=== PATIENT | male | born 1995 | race American Indian/Alaskan Native ===

== ENCOUNTER 2019-06-06 17:32 | Emergency (ER) | payer OTHER ==
[2019-06-06 19:27] VITALS: BP 124/74
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
[2019-06-06] MEDS ORDERED: IBUPROFEN 600 MG TAB PO ONE (21:43)
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
== END 2019-06-06 22:16 | disposition home or self-care (01) ==
LOC: ED 17:32
DX: M54.89 Other dorsalgia (principal); F17.200 Nicotine dependence, unspecified, uncomplicated; V89.2XXA Person injured in unspecified motor-vehicle accident, traffic, initial encounter; Y93.89 Activity, other specified; Y92.410 Unspecified street and highway as the place of occurrence of the external cause; Y99.8 Other external cause status
CPT/HCPCS: 99282